=== PATIENT | female | born 1980 | race African-American/Black ===

== ENCOUNTER 2019-11-29 08:17 | Emergency (ER) | payer OTHER, SELFPAY ==
[2019-11-29 08:29] VITALS: BP 145/78; PULSE 65; RESP 16; TEMP 36.5; O2SAT 99
--- NOTE | 2019-11-29 08:29 | PC.NURSE ---
PT in restroom given urine sample
--- NOTE | 2019-11-29 08:31 | ED.GENADULT ---
HPI - General Adult General Chief complaint: Urogenital-Female Stated complaint: UTI Time Seen by Provider: 11/29/19 08:31 Source: patient Mode of arrival: ambulatory Limitations: no limitations History of Present Illness HPI narrative: 38-year-old female patient presents to the [facility] with complaints of urinary symptoms for the past 2 days. Patient states she has had some lower abdominal pain, pain with urination as well as some itchiness to the vaginal area. Denies any fevers, chest pain, shortness of breath, nausea, vomiting or diarrhea. Denies any low back pain. Denies any concerns for STDs at this time. Denies any or breast-feeding at this time. Related Data Home Medications Medication Instructions Recorded Confirmed sumatriptan succinate [Imitrex] 100 mg PO ONCE PRN 11/29/19 11/29/19 Allergies Allergy/AdvReac Type Severity Reaction Status Date / Time aspirin Allergy Unknown Swelling Verified 11/29/19 08:36 Review of Systems Review of Systems: Narrative: CONSTITUTIONAL: Denies fever, chills, or sweats. EYES: Denies visual changes, redness, or discharge. ENT: Denies rhinorrhea, congestion, sore throat, or otalgia. CARDIOVASCULAR: Denies chest pain, palpitations, or edema. RESPIRATORY: Denies cough or dyspnea. GASTROINTESTINAL: Positive lower abdominal pain, denies nausea, vomiting, or diarrhea. GENITOURINARY: Denies dysuria or hematuria. Positive pain with urination SKIN: Denies rash or itching. MUSCULOSKELETAL: Denies back pain, joint pain, or myalgia. NEUROLOGIC: Denies headache, numbness, or weakness. PSYCHIATRIC: Denies anxiety or depression. PMFSH Social History Social History Gender identity (if verbalized by the patient): Female Comments At the time of my signature I agree with nursing past medical history, surgical, social, and family history. There is no relevant family history pertinent to the presenting complaint. Exam Narrative: Exam Narrative: GENERAL: Well-appearing, well-nourished, and in no acute distress. HEAD: Normocephalic, atraumatic. EYES: PERRLA and EOMI. ENT: Nares clear, no rhinorrhea or epistaxis. Mucous membranes moist. NECK: Supple. No lymphadenopathy CHEST: Clear to auscultation. No respiratory distress. HEART: Regular rate and rhythm. No murmur heard. Normal peripheral pulses. ABDOMEN: Soft, nontender, nondistended, normal active bowel sounds. No CVA tenderness on percussion. EXTREMITIES: Normal range of motion. No edema. SKIN: Warm, dry, no rash. NEURO: No focal deficits. Alert and oriented x3. Course Vital Signs Vital signs: Vital Signs Temperature 36.5 C 11/29/19 08:29 Pulse Rate 65 11/29/19 08:29 Respiratory Rate 16 11/29/19 08:29 Blood Pressure 145/78 H 11/29/19 08:29 Pulse Oximetry 99 11/29/19 08:29 Temperature 36.5 C 11/29/19 08:29 Pulse Rate 65 11/29/19 08:29 Respiratory Rate 16 11/29/19 08:29 Blood Pressure 145/78 H 11/29/19 08:29 Pulse Oximetry 99 11/29/19 08:29 Vital signs reviewed. The patient has been informed that they may have pre-hypertension or Hypertension based on a BP reading in the department. I recommend that the patient call the primary care provider listed on their discharge instructions or a physician of their choice this week to arrange follow up for further evaluation of possible pre-hypertension or Hypertension Medical Decision Making Differential Diagnosis Differential Diagnosis: Differential diagnosis: Uncomplicated lower UTI, uncomplicated UTI, pyelonephritis Cussed with patient that urine dip did not show much in regards for urinary tract infection however given the fact that she is having pain with urination, lower abdominal pain we will go ahead and start her on antibiotics today and send her urine off for culture. Discussed with patient I will also give her an antifungal pill that she can take after she is done with her anti
== END 2019-11-29 08:46 | disposition home or self-care (01) ==
PROVIDERS: Emergency Provider Nurse Practitioner Family; PCP Internal Medicine Infectious Disease
DX: N30.01 Acute cystitis with hematuria (principal)
CPT/HCPCS: 81003; 87086; 87088; 99213; G0463

== ENCOUNTER 2020-03-01 08:03 | Emergency (ER) | payer OTHER, SELFPAY ==
[2020-03-01 08:23] VITALS: BP 146/92; PULSE 74; RESP 16; TEMP 36.3; O2SAT 99
--- NOTE | 2020-03-01 08:26 | ED.FEMALEGU ---
HPI - Female Genitourinary General Chief complaint: Nausea/Vomiting/Diarrhea Stated complaint: abd pain Time Seen by Provider: 03/01/20 08:26 Source: patient Mode of arrival: ambulatory Limitations: no limitations History of Present Illness HPI Narrative: Emily Bustamante is a 39 yo female with a PMH of ADD, migraine, who comes to express care with complaints of urinary tract symptoms. Treated for this before and has not followed up with primary care physician or urology. Related Data Home Medications Medication Instructions Recorded Confirmed sumatriptan succinate [Imitrex] 100 mg PO ONCE PRN 11/29/19 03/01/20 dextroamphetamine-amphetamine 10 mg PO DAILY 03/01/20 03/01/20 doxycycline hyclate 100 mg PO DAILY 03/01/20 03/01/20 Allergies Allergy/AdvReac Type Severity Reaction Status Date / Time aspirin Allergy Unknown Swelling Verified 03/01/20 08:12 Review of Systems Review of Systems: Narrative: CONSTITUTIONAL: Denies fever, chills, sweats. EYES: Denies visual changes, redness, discharge. ENT: Denies rhinorrhea, congestion, sore throat, otalgia. CARDIOVASCULAR: Denies chest pain, palpitations, edema. RESPIRATORY: Denies dyspnea, wheezing, cough GASTROINTESTINAL: Denies abdominal pain, nausea, vomiting, diarrhea. GENITOURINARY:has dysuria, hematuria, abnormal discharge SKIN: Denies rash or itching. NEUROLOGIC: Denies numbness, or focal weakness. PSYCHIATRIC: Denies anxiety or depression. PMFSH Past Medical History Medical History ADD (attention deficit disorder) Migraine Family History Family History (Updated 03/01/20 @ 08:40 by Belem Meléndez CNP) Other No acute medical problems Social History Social History (Updated 03/01/20 @ 08:41 by Belem Meléndez CNP) Smoking status: Never smoker Substance use: never Gender identity (if verbalized by the patient): Female Comments At time of signature, I agree with nursing past medical, surgical, social and family history. There is no relevant family history pertinent to the presenting complaint. Blood pressure elevated will follow-up with primary care physician Exam Narrative: Exam Narrative: GENERAL: This is a well-nourished, well-developed patient, in mild distress. HEAD: normocephalic, atraumatic. EYES: Sclera clear/white. Vision is grossly intact. EARS: External ears normal, Hearing grossly intact. NOSE: External nose normal without nasal discharge, nares without redness, no rhinorrhea. THROAT: Mucous membranes moist, NECK: Neck supple, non-tender CARDIOVASCULAR: Regular rate and rhythm without murmurs, gallops, or rubs. RESPIRATORY: Clear to auscultation. Breath sounds equal bilaterally. No wheezes, rales, or rhonchi. GASTROINTESTINAL: Abdomen soft, mild tenderness, SKIN: warm, intact with no suspicious lesions or rash, good texture and turgor. NEURO: awake, alert, and oriented to person, place and time. There were no obvious focal neurologic abnormalities. Steady gait EXTREMITIES: Normal range of motion. BACK: Nontender without deformity Const: Limitations: behavioral limitations Course Course Emergency Course: Patient comes in with dysuria-has been treated for dysuria in the last 3 months with Macrobid UA negative Discussed with patient her current symptoms and that she probably needs to follow-up with urology; given 5 days of Keflex and Diflucan Follow-up with primary Vital Signs Vital signs: Vital Signs Temperature 97.4 F L 03/01/20 08:23 Pulse Rate 74 03/01/20 08:23 Respiratory Rate 16 03/01/20 08:23 Blood Pressure 146/92 H 03/01/20 08:23 Pulse Oximetry 99 03/01/20 08:23 Temperature 97.4 F L 03/01/20 08:28 Pulse Rate 74 03/01/20 08:28 Respiratory Rate 16 03/01/20 08:28 Blood Pressure 146/92 H 03/01/20 08:28 Pulse Oximetry 99 03/01/20 08:28 MDM - Female Genitourinary Differential Diagnosis Differential diagnosis: Likely urinary tra
[2020-03-01 08:28] VITALS: BP 146/92; PULSE 74; RESP 16; TEMP 36.3; O2SAT 99
== END 2020-03-01 09:03 | disposition home or self-care (01) ==
PROVIDERS: Emergency Provider Nurse Practitioner
DX: R30.0 Dysuria (principal); F98.8 Other specified behavioral and emotional disorders with onset usually occurring in childhood and adolescence
CPT/HCPCS: 81003; 99213; G0463

== ENCOUNTER 2021-01-20 09:55 | Emergency (ER) | payer OTHER, SELFPAY ==
[2021-01-20 10:05] VITALS: BP 129/91; PULSE 65; RESP 16; TEMP 35.9; O2SAT 99
--- NOTE | 2021-01-20 10:57 | ED.SKABFB ---
HPI - Skin/Abscess/Foreign Bdy General Chief complaint: Skin/Abscess/Foreign Body Stated complaint: Athletes Foot Time Seen by Provider: 01/20/21 10:58 Source: patient, RN notes reviewed and old records reviewed Mode of arrival: ambulatory Limitations: no limitations History of Present Illness HPI narrative: 40 year old female who presents to [facility] care with complaints of blister type of lesions between her 3rd and 4th toe with redness and itching to the area for the past 2 weeks. Patient states that she has been cleaning area with alcohol and has applied Tinactin ointment with no improvement. Patient states that area is itchy, has not noted any drainage from area. Patient denies any fevers chills or any other ill symptoms. MD complaint: rash Related Data Home Medications Medication Instructions Recorded Confirmed topiramate 50 mg PO BID 01/20/21 01/20/21 Allergies Allergy/AdvReac Type Severity Reaction Status Date / Time aspirin Allergy Unknown Swelling Verified 01/20/21 10:18 Review of Systems Review of Systems: CONSTITUTIONAL: Denies fever, chills, or sweats. EYES: Denies visual changes, redness, or discharge. ENT: Denies rhinorrhea, congestion, sore throat, or otalgia. CARDIOVASCULAR: Denies chest pain, palpitations, or edema. RESPIRATORY: Denies cough or dyspnea. GASTROINTESTINAL: Denies abdominal pain, nausea, vomiting, or diarrhea. GENITOURINARY: Denies dysuria or hematuria. SKIN: Positive rash or itching to left foot MUSCULOSKELETAL: Denies back pain, joint pain, or myalgia. NEUROLOGIC: Denies headache, numbness, or weakness. PSYCHIATRIC: Denies anxiety or depression. All systems reviewed & are unremarkable except as noted in HPI and below PMFSH Past Medical History Medical History (Updated 01/23/21 @ 11:36 by Antionette Hampton NP) ADD (attention deficit disorder) Kidney stone Migraine Vocal cord dysfunction Surgical History Surgical History (Updated 01/23/21 @ 11:36 by Antionette Hampton NP) H/O bilateral breast reduction surgery History of partial hysterectomy Family History Family History (Updated 01/23/21 @ 11:37 by Antionette Hampton NP) Grandparent Hypertension Diabetes mellitus Kidney failure Father Lung cancer Social History Social History Smoking status: Never smoker Substance use: never Gender identity (if verbalized by the patient): Female Comments At time of signature, agree with nursing past medical, surgical, social and family history. There is no relevant family history pertinent to the presenting complaint Exam Narrative: GENERAL: Well-appearing, well-nourished, and in no acute distress. HEAD: Normocephalic, atraumatic. EYES: PERRLA and EOMI. ENT: Nares clear, no rhinorrhea or epistaxis. Mucous membranes moist. NECK: Supple.no lymphadenopathy CHEST: Clear to auscultation. No respiratory distress.SAO2 99% on room air HEART: Regular rate and rhythm. No murmur heard. Normal peripheral pulses. ABDOMEN: Soft, nontender, nondistended, normal active bowel sounds. EXTREMITIES: Normal range of motion. No edema. SKIN: Warm, dry, red rash between 3rd and 4th toes left foot with three small blisters noted with no drainage, is itchy. NEURO: No focal deficits. Alert and oriented x3. Course Vital Signs Vital signs: Vital Signs Temperature 35.9 C L 01/20/21 10:05 Pulse Rate 65 01/20/21 10:05 Respiratory Rate 16 01/20/21 10:05 Blood Pressure 129/91 H 01/20/21 10:05 Pulse Oximetry 99 01/20/21 10:05 Temperature 35.9 C L 01/20/21 10:05 Pulse Rate 65 01/20/21 10:05 Respiratory Rate 16 01/20/21 10:05 Blood Pressure 129/91 H 01/20/21 10:05 Pulse Oximetry 99 01/20/21 10:05 MDM - Skin/Abscess/Foreign Bdy Differential Diagnosis Differential diagnosis: Likely abscess of skin or subcutaneous tissue, dermatophytosis, eczema and contact dermatitis Medical Records Attestation: I reviewed
== END 2021-01-20 11:13 | disposition home or self-care (01) ==
PROVIDERS: Emergency Provider Registered Nurse; PCP Internal Medicine Infectious Disease
DX: B35.3 Tinea pedis (principal); Z90.711 Acquired absence of uterus with remaining cervical stump
CPT/HCPCS: 99213; G0463

== ENCOUNTER 2023-07-14 13:08 | Emergency (ER) | payer BC, SELFPAY ==
--- NOTE | 2023-07-14 13:10 | ED.URI ---
HPI - URI/Sore Throat General Chief Complaint: Upper Respiratory Infection Stated Complaint: Cough/Bodyaches Time Seen by Provider: 07/14/23 13:10 Source: patient Mode of arrival: ambulatory Limitations: no limitations History of Present Illness HPI Narrative: Emily is a 42-year-old female patient presenting to the clinic today with complaints of cough, headache, runny nose, congestion, and body aches since Tuesday. She reports she has felt feverish as well. Has not checked her temperature. No known exposure to anyone with COVID, flu, or strep. Cough is nonproductive. Denies any chest pain or shortness of breath MD elicited complaint: sore throat and nasal congestion Related Data Home Medications Medication Instructions Recorded Confirmed topiramate 50 mg tablet 50 mg PO BID 01/20/21 07/14/23 dextroamphetamine-amphetamine 30 30 mg PO DAILY 07/14/23 07/14/23 mg tablet hydrochlorothiazide 25 mg tablet 25 mg PO DIRECTED 07/14/23 07/14/23 pantoprazole 40 mg tablet,delayed 40 mg PO DAILY 07/14/23 07/14/23 release Allergies Allergy/AdvReac Type Severity Reaction Status Date / Time aspirin Allergy Unknown Swelling Verified 07/14/23 13:11 Review of Systems Review of Systems: Pertinent positives per HPI. Patient denies any rash, visual changes, dizziness,shortness of breath, chest pain, palpitations, nausea, vomiting, diarrhea, constipation, abdominal pain, or any urinary issues. [facility] Past Medical History Medical History (Updated 07/14/23 @ 13:42 by Tio Roach APRN) ADD (attention deficit disorder) Kidney stone Migraine Vocal cord dysfunction Surgical History Surgical History H/O bilateral breast reduction surgery History of partial hysterectomy Family History Family History Grandparent Hypertension Diabetes mellitus Kidney failure Father Lung cancer Social History Social History Smoking status: Never smoker Substance use: never Gender identity (if verbalized by the patient): Female Comments At the time of my signature, I reviewed and agree with the nursing past medical, surgical, social, and family history. There is no relevant family history pertinent to the patient complaint. Exam Narrative: General: Well-developed, well nourished, in no apparent distress Head: Normocephalic, atraumatic Eyes: Pupils equally round and reactive to light bilaterally, EOM intact, sclera and conjunctive clear, no discharge, lids normal Ears: TMs intact and clear, ear canals clear, no drainage, grossly hearing normal. Nose: Nares patent, clear nasal discharge, no inflammation, no sinus tenderness. Mouth: Oral pharynx without lesions or masses, good dentition, MMM. Neck: Supple, trachea midline, no enlargement of anterior or posterior cervical nodes, no thyroid masses or goiter palpable. Cardio: Regular rate and rhythm, s1 and s2 normal, no murmur appreciated. Resp: Clear to auscultation bilaterally, no rhonchi, rales, wheezing or rubs Course Course Emergency Course: Portions of this record may have been created with voice recognition software. Level of Care: Express Care Visit Vital Signs Vital signs: Vital signs reviewed MDM - URI/Sore Throat MDM Narrative Medical decision making narrative: At the time of visit patient is resting comfortably on the exam table. Patient appears to be nontoxic. Labs: COVID and influenza testing was performed. Patient is positive for influenza A. COVID testing was negative. Plan: Patient has influenza A. Supportive measures were discussed with the patient and they voiced understanding discharge instructions and agrees to treatment plan. Return precautions reviewed Differential Diagnosis Differential diagnosis: Likely upper respiratory infection, otitis m
[2023-07-14 13:25] VITALS: BP 125/89; PULSE 99; RESP 16; TEMP 36.8; O2SAT 100
== END 2023-07-14 13:45 | disposition home or self-care (01) ==
PROVIDERS: Emergency Provider Nurse Practitioner Family; PCP Internal Medicine Infectious Disease
DX: J10.1 Influenza due to other identified influenza virus with other respiratory manifestations (principal); Z79.899 Other long term (current) drug therapy; Z20.822 Contact with and (suspected) exposure to COVID-19
CPT/HCPCS: 87426; 87804; 99213; G0463